=== PATIENT | female | born 1990 | race Two or more races ===

== ENCOUNTER 2018-09-15 17:53 | Emergency (ER) | payer OTHER ==
[2018-09-15 18:27] VITALS: BP 128/75
--- NOTE | 2018-09-15 20:19 | UC ---
Lower Extremity/Ankle HPI - HPI Summary HPI Summary: Stumbled and twisted right ankle suffering an inversion injury 2 days ago. Has had persistent pain and swelling laterally. Able to weight-bear but with some discomfort. - History of Current Complaint Chief Complaint: UCLowerExtremity Stated Complaint: R ANKLE INJURY Time Seen by Provider: 09/15/18 19:35 Hx Obtained From: Patient Hx Last Menstrual Period: 2 wks ago Onset/Duration: Sudden Onset, Lasting Days, Still Present Severity Initially: Moderate Severity Currently: Moderate Pain Intensity: 5 Pain Scale Used: 0-10 Numeric Aggravating Factor(s): Standing, Ambulation Alleviating Factor(s): Rest, Elevation Able to Bear Weight: Yes - WITH PAIN - Allergies/Home Medications Allergies/Adverse Reactions: Allergies Allergy/AdvReac Type Severity Reaction Status Date / Time aspirin Allergy Rash Verified 09/15/18 18:28 Home Medications: Home Medications Spironolactone TAB* [Aldactone TAB 25 MG*] 1 tab PO DAILY 09/15/18 [History Confirmed 09/15/18] PMH/Surg Hx/FS Hx/Imm Hx Previously Healthy: Yes - Surgical History Surgical History: None - Family History Known Family History: Positive: Non-Contributory - Social History Alcohol Use: Occasionally Substance Use Type: None Smoking Status (MU): Never Smoked Tobacco Review of Systems All Other Systems Reviewed And Are Negative: Yes Skin: Positive: Negative Respiratory: Positive: Negative Cardiovascular: Positive: Negative Gastrointestinal: Positive: Negative Musculoskeletal: Positive: Arthralgia, Decreased ROM, Edema Physical Exam Triage Information Reviewed: Yes Appearance: Well-Appearing, No Pain Distress, Well-Nourished Vital Signs: Initial Vital Signs Temp 97.7 F 09/15/18 18:25 Pulse 62 09/15/18 18:25 Resp 18 09/15/18 18:25 BP 128/75 09/15/18 18:25 Pulse Ox 100 09/15/18 18:25 Vital Signs Reviewed: Yes Eyes: Positive: Conjunctiva Clear ENT: Positive: Hearing grossly normal Neck: Positive: Supple Respiratory: Positive: No respiratory distress, No accessory muscle use Cardiovascular: Positive: Pulses Normal Abdomen Description: Positive: Soft Musculoskeletal: Positive: ROM Limited @ - RIGHT ANKLE, Edema @ - MILD EDEMA RIGHT LATERAL ANKLE, Other: - TTP RIGHT ANKLE LATERAL MALLEOLUS. ACHILLES INTACT Neurological: Positive: Alert Psychological: Positive: Age Appropriate Behavior Skin: Negative: Rashes Diagnostics - Radiology RIGHT ANKLE XRAYS Radiology Interpretation Completed By: ED Physician Summary of Radiographic Findings: NO FRACTURE Lower Extremity Course/Dx - Course Course Of Treatment: WET READ BY ME UNREMARKABLE FOR FRACTURE OR DISLOCATION. RADIOLOGY READ PENDING. WILL TREAT A SPRAIN WITH MYESHA WRAP AND GEL SPLINT. PATIENT DECLINES CRUTCHES WHICH I THINK IS REASONABLE GIVEN THE ICY TERRAIN. REST, ICE, COMPRESS, ELEVATE. OTC MEDS NEEDED FOR DISCOMFORT. FOLLOW-UP IF NOT IMPROVING EXPECTED OVER THE NEXT 1-2 WEEKS. - Differential Dx/Diagnosis Provider Diagnosis: Right ankle sprain Discharge - Sign-Out/Discharge Documenting (check all that apply): Patient Departure All imaging exams completed and their final reports reviewed: No - Discharge Plan Condition: Stable Disposition: HOME Patient Education Materials: Ankle Sprain (ED) Forms: *Work Release Referrals: Kristine Samayoa DO [Primary Care Provider] - If Needed Additional Instructions: XRAY TODAY NEGATIVE FOR FRACTURE OR DISLOCATION. YOUR SYMPTOMS SHOULD IMPROVE SIGNIFICANTLY OVER THE NEXT 1-2 WEEKS. IF YOU DO NOT IMPROVE EXPECTED FOLLOW- UP WITH YOUR PCP. YOU MAY BENEFIT FROM REPEAT IMAGING AT THAT TIME. OTC IBUPROFEN OR ALEVE NEEDED FOR DISCOMFORT. REST, ICE, COMPRESS, ELEVATE. MYESHA WRAP AND GEL SPLINT NEEDED FOR SYMPTOM RELIEF. BE SURE TO GO THROUGH SLOW RANGE OF MOTION AND STRETCHING EXERCISES DAILY YOU ARE ABLE TO PREVENT STIFFENING UP AND MAKING THE DISCOMFORT WORSE. - Billing Disposition and Condition Condition: STABLE Disposition: Home
--- NOTE | 2018-09-16 15:13 | UC ---
- Progress Note Progress Note: OFFICIAL RADIOLOGY REPORT REVIEWED AND CONFIRMS NO FRACTURE. NO CHANGE IN MGMT. Course/Dx - Diagnoses Provider Diagnoses: Right ankle sprain Discharge - Sign-Out/Discharge Documenting (check all that apply): Post-Discharge Follow Up All imaging exams completed and their final reports reviewed: Yes - Discharge Plan Condition: Stable Disposition: HOME Patient Education Materials: Ankle Sprain (ED) Forms: *Work Release Referrals: Kristine Samayoa DO [Primary Care Provider] - If Needed Additional Instructions: XRAY TODAY NEGATIVE FOR FRACTURE OR DISLOCATION. YOUR SYMPTOMS SHOULD IMPROVE SIGNIFICANTLY OVER THE NEXT 1-2 WEEKS. IF YOU DO NOT IMPROVE EXPECTED FOLLOW- UP WITH YOUR PCP. YOU MAY BENEFIT FROM REPEAT IMAGING AT THAT TIME. OTC IBUPROFEN OR ALEVE NEEDED FOR DISCOMFORT. REST, ICE, COMPRESS, ELEVATE. MYESHA WRAP AND GEL SPLINT NEEDED FOR SYMPTOM RELIEF. BE SURE TO GO THROUGH SLOW RANGE OF MOTION AND STRETCHING EXERCISES DAILY YOU ARE ABLE TO PREVENT STIFFENING UP AND MAKING THE DISCOMFORT WORSE. - Billing Disposition and Condition Condition: STABLE Disposition: Home
== END 2018-09-15 20:35 | disposition home or self-care (01) ==
LOC: UCEAST 17:53
DX: S93.401A Sprain of unspecified ligament of right ankle, initial encounter (principal); Z88.8 Allergy status to other drugs, medicaments and biological substances; X50.9XXA Other and unspecified overexertion or strenuous movements or postures, initial encounter; Y92.9 Unspecified place or not applicable
CPT/HCPCS: 99213; G0463